=== PATIENT | female | born 1980 | race African-American/Black ===

== ENCOUNTER 2020-05-23 15:40 | Inpatient (IN) | payer OTHER ==
[2020-05-23 17:11] LABS: BASO % 0.4 % (0-2.0); EOS % 0.3 % (0-4.5); HEMATOCRIT 32.1 % (32.4-45.2); HEMOGLOBIN 10.7 GM/dL (10.7-15.3); LYMPH % 15.9 % (8-40); MCH 30.8 pg (25.7-33.7); MCHC 33.3 g/dl (32.0-36.0); MEAN CELL VOLUME 92.6 fl (80-96); MEAN PLT VOLUME 7.5 fl (7.5-11.1); MONO % 5.5 % (3.8-10.2); NEUT % 77.9 % (42.8-82.8); PLATELET COUNT 231 K/MM3 (134-434); RBC 3.46 M/mm3 (3.60-5.2); RDW 14.2 % (11.6-15.6); WHITE BLOOD COUNT 9.2 K/mm3 (4.0-10.0)
[2020-05-23 17:15] LABS: PH,URINE 5.5 (5.0-8.0); URINE APPEARANCE CLOUDY; URINE BILIRUBIN NEGATIVE (NEGATIVE); URINE COLOR DK YELLOW; URINE GLUCOSE (UA) NEGATIVE (NEGATIVE); URINE KETONE 1+ (NEGATIVE); URINE LEUK ESTERASE NEGATIVE (NEGATIVE); URINE NITRITE NEGATIVE (NEGATIVE); URINE PROTEIN TRACE (NEGATIVE)
[2020-05-23 17:20] LABS: RETICULOCYTES 2.13 % (0.5-1.5)
[2020-05-23 17:23] VITALS: BMI 38.0
[2020-05-23 17:36] LABS: CALCIUM 8.6 mg/dL (8.5-10.1); CREATININE 0.6 mg/dL (0.55-1.3); GAMMA GLUTAMYL TRANSPEPTIDASE 10 U/L (5-85); POTASSIUM 4.1 mmol/L (3.5-5.1); SGOT/AST 15 U/L (15-37); SGPT/ALT 17 U/L (13-61); URIC ACID 4.4 mg/dL (2.6-7.2)
[2020-05-23] MEDS ORDERED: DINOPROSTONE 10 MG VAGINAL SUPPOSITORY VG ONE (18:00)
--- NOTE | 2020-05-23 20:06 | HP ---
Past Medical History - Admission Chief Complaint: Here for Induction of labor History Source: Patient - Past Medical History CUSTOMER TRAINER: Yes: Seizure Cardiovascular: Yes: HTN ...: 5 ...Para: 2 ...Term: 2 ...: 2 ...Living Children: 2 ...LMP: 09/08/19 ... Weeks Gestation by Dates: 36.6 ...EDC by Dates: 06/14/20 ...EDC by Sono: 06/14/20 - Past Surgical History Hx Myomectomy: No Hx Transabdominal Cerclage: No - Smoking History Smoking history: Never smoked Have you smoked in the past 12 months: No - Alcohol/Substance Use Hx Alcohol Use: No Home Medications - Allergies Allergies/Adverse Reactions: Allergies Allergy/AdvReac Type Severity Reaction Status Date / Time No Known Allergies Allergy Verified 05/23/20 17:56 Review of Systems - Review of Systems Constitutional: reports: No Symptoms Cardiovascular: reports: No Symptoms Respiratory: reports: No Symptoms Gastrointestinal: reports: No Symptoms Genitourinary: reports: No Symptoms Physical Exam - Maternity Vital Signs: Vital Signs Temperature 98.6 F 05/23/20 17:09 Pulse Rate 77 05/23/20 19:00 Respiratory Rate 20 05/23/20 19:00 Blood Pressure 133/71 05/23/20 19:00 O2 Sat by Pulse Oximetry (%) Constitutional: Yes: Well Nourished Cardiovascular: Yes: WNL Lungs: Clear to auscultation - Abdominal Exam/OB Fundal Height: 38 Number of Fetuses: Single Presentation: Vertex Contractions: No Monitor Mode: External Heart Rate (range): 150 Category: I Accelerations: None Decelerations: None - Vaginal Exam/OB Dilatation (cm): 0 Effacement (%): 0 Amniotic Membrane Status: Intact Presentation: Vertex/Position Station: -4 - Labs Lab Results: CBC, BMP 05/23/20 16:45 05/23/20 16:45 Hemorrhage Risk Assessment - Risk Factors Medium Risk Factors: Yes: None High Risk Factors: Yes: None Risk Score: 1 Risk Level: Medium Risk Assessment/Plan 39yo @ 36w6d, chr HTN, h/o seizure 9yrs ago Asymptomatic at this time Sent by [facility] for IOL Admit to labor and delivery Informed consent labs IV cervidil inducton Anticipate vaginal delivery, plan discussed with patient, understands, verbalised understanding and agrees. Pain management Labs- platelet-231, uric steven 4.4, AST-15,ALT- 17 Cervidil placed continue monitoring.
[2020-05-23] MEDS ORDERED: AMPICILLIN - 2 GM in SODIUM CHLORIDE 100 ML IVPB ONE (20:56)
[2020-05-24] MEDS ORDERED: SODIUM CHLORIDE 100 ML IVPB ONE (06:44)
[2020-05-24] MEDS ORDERED: AMPICILLIN - 2 GM in SODIUM CHLORIDE 100 ML IVPB ONE (06:45)
[2020-05-24] MEDS ORDERED: AMPICILLIN SODIUM 2 GM VIAL ONE (06:45)
[2020-05-24] MEDS ORDERED: BUTORPHANOL TARTRATE 2 MG/ML VIAL ONE (08:59)
[2020-05-24] MEDS ORDERED: OXYTOCIN 30 UNITS in 0.9% NS 30 UNIT/500 ML INFUS.BAG IVPB ONE (08:59)
[2020-05-24] MEDS ORDERED: BUTORPHANOL TARTRATE 2 MG/ML VIAL IVPB ONE (09:01)
[2020-05-24] MEDS ORDERED: PROMETHAZINE HCL 25 MG/1 ML VIAL IVPB ONE (09:01)
--- NOTE | 2020-05-24 09:04 | PN ---
Progress Note (short form) - Note Progress Note: cervix 2 cm 50% effaced vertex -2 AROM clear fluid tracing reactive with good variability accelerations no decelerations category I at 140 BPM plan oxytocin augmentation
[2020-05-24] MEDS ORDERED: OXYTOCIN 30 UNITS in 0.9% NS 30 UNIT/500 ML INFUS.BAG IVPB SCH (09:15)
[2020-05-24] MEDS ORDERED: AMPICILLIN SODIUM 1 GM VIAL ONE (10:43)
[2020-05-24] MEDS ORDERED: OXYTOCIN 20 UNITS in 0.9% NS 20 UNIT/1,000 ML INFUS.BAG IV ONE ×2 (10:49→13:48)
[2020-05-24] MEDS ORDERED: FENTANYL/BUPIVACAINE/NS/PF - PCEA - 50 ML DISP.SYRIN EP ONE (10:49)
[2020-05-24] MEDS: AMPICILLIN - 1 GM in SODIUM CHLORIDE 100 ML IVPB SCH ×4 (11:00→19:39)
[2020-05-24] MEDS ORDERED: BENZOCAINE 28 GM HEMORRHOIDAL OINTMENT TP PRN (12:54)
[2020-05-24] MEDS ORDERED: BISACODYL 10 MG SUPP.RECT RC PRN (12:54)
[2020-05-24] MEDS ORDERED: WITCH HAZEL 50% (TUCKS) 40 PAD/JAR PAD TP PRN (12:54)
[2020-05-24] MEDS ORDERED: BENZOCAINE 20% 57 GM BOTTLE TP PRN (12:54)
[2020-05-24] MEDS ORDERED: METHYLERGONOVINE MALEATE 0.2 MG/1 ML AMP IM PRN (12:54)
--- NOTE | 2020-05-24 12:58 | PN ---
Delivery - Delivery Vaginal Delivery: No Problems Type of Anesthesia: Epidural Episiotomy/Laceration: None EBL (cc): 200 Delivery, Single - Feeding Plan Initial Plan: Elected not to breastfeed exclusively throughout hospitalization
[2020-05-24] MEDS ORDERED: OXYTOCIN 20 UNITS in 0.9% NS 20 UNIT/1,000 ML INFUS.BAG IV SCH (13:00)
[2020-05-24] MEDS ORDERED: NALOXONE HCL 0.4 MG/ML VIAL IVPUSH PRN (13:16)
[2020-05-24] MEDS ORDERED: FENTANYL/BUPIVACAINE/NS/PF - PCEA - 50 ML DISP.SYRIN EP SCH (13:30)
[2020-05-24] MEDS: IBUPROFEN 600 MG TABLET (FP) PO PRN (21:28)
[2020-05-24] MEDS: ACETAMINOPHEN 325 MG TABLET (FP) PO PRN (21:29)
[2020-05-25 08:21] LABS: BASO % 0.3 % (0-2.0); EOS % 0.7 % (0-4.5); HEMATOCRIT 29.7 % (32.4-45.2); HEMOGLOBIN 9.6 GM/dL (10.7-15.3); LYMPH % 19.3 % (8-40); MCH 29.7 pg (25.7-33.7); MCHC 32.3 g/dl (32.0-36.0); MEAN CELL VOLUME 91.7 fl (80-96); MEAN PLT VOLUME 7.5 fl (7.5-11.1); MONO % 5.3 % (3.8-10.2); NEUT % 74.4 % (42.8-82.8); PLATELET COUNT 211 K/MM3 (134-434); RBC 3.24 M/mm3 (3.60-5.2); RDW 14.1 % (11.6-15.6); WHITE BLOOD COUNT 11.9 K/mm3 (4.0-10.0)
[2020-05-25] MEDS ORDERED: DIPHTH,PERTUSS(ACELL),TET 0.5 ML DISP.SYRIN IM ONE (10:00)
--- NOTE | 2020-05-25 11:34 | PN ---
Post Progress Note - Subjective Subjective: Patient feels well; offers no complaints. Denies headache, CP, blurry vision, abdominal pain. Post Day: 1 Type of Delivery: Vital Signs: Vital Signs Temperature 98.1 F 05/25/20 10:00 Pulse Rate 68 05/25/20 10:00 Respiratory Rate 18 05/25/20 10:00 Blood Pressure 132/78 05/25/20 10:00 O2 Sat by Pulse Oximetry (%) 100 05/25/20 10:00 Breast Exam: Yes: Soft Uterus: Yes: Fundus Firm Abdomen/GI: Yes: Abdomen soft Lochia: Yes: Rubra Lochia, amount: Small Extremities: Yes: Calves non-tender Perineum: Yes: Intact Activity: Ambulating - Labs Labs: CBC WBC 11.9 K/mm3 (4.0-10.0) H 05/25/20 07:28 RBC 3.24 M/mm3 (3.60-5.2) L 05/25/20 07:28 Hgb 9.6 GM/dL (10.7-15.3) L 05/25/20 07:28 Hct 29.7 % (32.4-45.2) L 05/25/20 07:28 MCV 91.7 fl (80-96) 05/25/20 07:28 MCH 29.7 pg (25.7-33.7) 05/25/20 07:28 MCHC 32.3 g/dl (32.0-36.0) 05/25/20 07:28 RDW 14.1 % (11.6-15.6) 05/25/20 07:28 Plt Count 211 K/MM3 (134-434) 05/25/20 07:28 MPV 7.5 fl (7.5-11.1) 05/25/20 07:28 Absolute Neuts (auto) 8.9 K/mm3 (1.5-8.0) H 05/25/20 07:28 Neutrophils % 74.4 % (42.8-82.8) 05/25/20 07:28 Lymphocytes % 19.3 % (8-40) D 05/25/20 07:28 Monocytes % 5.3 % (3.8-10.2) 05/25/20 07:28 Eosinophils % 0.7 % (0-4.5) D 05/25/20 07:28 Basophils % 0.3 % (0-2.0) 05/25/20 07:28 Nucleated RBC % 0 % (0-0) 05/25/20 07:28 Retic Count 2.13 % (0.5-1.5) H 05/23/20 16:45 Haptoglobin 163 mg/dL (33-278) 05/23/20 16:55 Assessment/Plan PPD #1, hemodynamically stable CHTN Anemia Monitor vitals Preeclampsia precautions Pain management Regular diet Ambulation encouraged Iron, colace, PNV Consider discharge home in AM
[2020-05-25] MEDS: PRENATAL VITAMINS W/ FOLIC ACID TABLET (FP) PO SCH (11:50)
[2020-05-25] MEDS: FERROUS SO4 325 MG TABLET (FP) PO SCH ×2 (11:50→17:57)
[2020-05-25] MEDS: ACETAMINOPHEN 325 MG TABLET (FP) PO PRN (21:00)
[2020-05-25] MEDS: IBUPROFEN 600 MG TABLET (FP) PO PRN (21:03)
[2020-05-25 21:22] VITALS: PULSE 80
[2020-05-25] MEDS ORDERED: SENNOSIDES/DOCUSATE COMBO (SENNA PLUS) TABLET (UD) PO PRN (22:00)
[2020-05-26] MEDS: PRENATAL VITAMINS W/ FOLIC ACID TABLET (FP) PO SCH (09:15)
[2020-05-26] MEDS: FERROUS SO4 325 MG TABLET (FP) PO SCH (09:15)
[2020-05-26] MEDS: ACETAMINOPHEN 325 MG TABLET (FP) PO PRN (09:18)
[2020-05-26] MEDS: IBUPROFEN 600 MG TABLET (FP) PO PRN (09:19)
[2020-05-26 12:32] VITALS: BP 120/70; TEMP 97.8
--- NOTE | 2020-05-26 12:44 | DS ---
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 Vital Signs: Vital Signs Temperature 97.8 F 05/26/20 10:00 Pulse Rate 80 05/25/20 21:21 Respiratory Rate 18 05/26/20 10:00 Blood Pressure 120/70 05/26/20 10:00 O2 Sat by Pulse Oximetry (%) 99 05/26/20 10:00 Constitutional: Yes: Calm Cardiovascular: Yes: WNL Respiratory: Yes: WNL Gastrointestinal: Yes: WNL, Soft ....Post : Yes: Uterus firm, Slight lochia rubra Breast(s): Yes: WNL Edema: Yes Edema: LLE: 1+, RLE: 1+ Labs: CBC, BMP 05/25/20 07:28 05/23/20 16:45 Delivery - Delivery Vaginal Delivery: No Problems Type of Anesthesia: Epidural Episiotomy/Laceration: None EBL (cc): 200 Delivery, Single - Stages of Labor Date 1st Stage Initiatied: 05/24/20 Time 1st Stage Initiated: 09:00 Date 2nd Stage Initiated: 05/24/20 Time 2nd Stage Initiated: 12:40 Date of Delivery: 05/24/20 Time of Delivery: 12:45 Time Placenta Delivered: 12:49 - Condition of Infant Mental Health Counselor/Customer Leader Present: No Infant Gender: Male Weight: 2.863 kg Position: Right, OA Total Hours ROM (Hrs/Mins): 3hrs 54min - 1 Minute Total Score: 9 5 Minutes Total Score: 9 - Feeding Plan Initial Plan: Elected not to breastfeed exclusively throughout hospitalization Discharge Summary Problems reviewed: Yes Reason For Visit: INDUCTION OF LABOR Procedures: Principal: Hospital Course: stable Plan of Treatment: follow up 6 wks in office Condition: Good - Instructions Diet, Activity, Other Instructions: regular diet Disposition: HOME
== END 2020-05-26 13:15 | disposition home or self-care (01) | DRG 806 ==
LOC: JLDR 15:40 → J3W 05-24 17:00
PROVIDERS: ADMIT Obstetrics & Gynecology; ATTEND Obstetrics & Gynecology
PROC: 3E0P7VZ Introduction of Hormone into Female Reproductive, Via Natural or Artificial Opening (ICD-10-PCS; 2020-05-23)
PROC: 10E0XZZ Delivery of Products of Conception, External Approach (ICD-10-PCS; principal; 2020-05-24)
PROC: 10907ZC Drainage of Amniotic Fluid, Therapeutic from Products of Conception, Via Natural or Artificial Opening (ICD-10-PCS; 2020-05-24)
DX: O60.14X0 Preterm labor third trimester with preterm delivery third trimester, not applicable or unspecified (principal); O10.92 Unspecified pre-existing hypertension complicating childbirth; Z37.0 Single live birth; Z3A.36 36 weeks gestation of pregnancy; Z86.69 Personal history of other diseases of the nervous system and sense organs; O90.81 Anemia of the puerperium; D64.9 Anemia, unspecified
CPT/HCPCS: 36415; 59409; 80048; 81003; 82977; 83010; 84450; 84460; 84550; 85025; 85032; 85045; 86762; 86780; 86850; 86900; 86901; 87340; 87389; 90715; U0003